=== PATIENT | female | born 1960 | race Caucasian/White ===

== ENCOUNTER → 2018-05-31 16:55 | Outpatient (CLI) | payer SELFPAY ==
--- NOTE | 2018-05-30 | IMM_PTH ---
PATIENT: CARLOS MURPHY LOC: [facility] U#:[id number] AGE/SX: 64/F ROOM: RE05/31/[address]: Dr. Nate Isaacs MD : 1960 BED: DIS: SPEC #: [id number] RECD: 06/03/18 10:48 STATUS: RIOS REApril #: [id number] ADE: 05/30/18 00:[address]: Nate Isaacs DEPT: IMMUNOHISTOCHEMISTRY RECD BY: Rama Connor Tissues: A - Stomach, NOS Procedures: H Pylori (initial) PHYSICIAN & INSTITUTION [place] [id number] SPECIMEN INFORMATION: Tissue Source: A ? Antral biopsy Clinical Info: Z80.0, R13.10 Specimen Number: [id number] CPT code: 82525 METHODOLOGY: Deparaffinized sections of prefer/formalin-fixed tissue or PAP/DQ stained slides are incubated with monoclonal/polyclonal antibodies/oligonucleotide probes. Localization is made via biotin free immunoperoxidase method. Appropriate controls are performed and reacted as expected. Results on target cell population are indicated in the following table: RESULTS: ANTIBODY / CLONE RESULT Block A H Pylori (polyclonal) negative These tests were developed and their performance characteristics determined by [facility]. They may not have been cleared or approved by the U.S. Food and Drug Administration. The FDA has determined that such clearance or approval is not necessary. INTERPRETATION: A. Antral biopsy: Negative for Helicobacter pylori organisms. AM:eduin 06/06/18
--- NOTE | 2018-05-30 15:40 | GASB_PTH ---
PATIENT: CARLOS MURPHY [facility][id number] AGE/SX: 64/F ROOM: RE05/31/[address]: Dr. Nate Isaacs MD : 1960 BED: DIS: SPEC #: [id number] RECD: 05/31/18 16:56 STATUS: RIOS JAY #: [id number] ADE: 05/30/18 15:[address]: Nate Isaacs DEPT: SURGICAL PATHOLOGY RECD BY: Cornel Welsh Tissues: A - Gastric mucous membrane B - Esophageal mucous membrane Procedures: Surgery Specimen Level IV HEADER OPERATION: EGD / colonoscopy PRE-OP DIAGNOSIS: Z80.0, R13.10 TISSUE SUBMITTED: A ? Antral biopsy H/H, B ? Distal esophageal biopsy MICROSCOPIC DIAGNOSIS A. Gastric antrum, biopsy: Mild chronic gastritis. B. Distal esophagus, biopsy: Focal changes of reflux. Gastroesophageal junction mucosa with chronic inflammation. AM:eduin 06/03/18 COMMENT A. The results of immunohistochemistry for Helicobacter pylori will be reported separately ([id number]). MICROSCOPIC DESCRIPTION Slides are reviewed. GROSS DESCRIPTION A - Received in fixative is one container labeled with the patient's name and designated antral biopsy. The specimen consists of two irregular fragments of light king soft tissue that in aggregate measure 0.6 x 0.3 x 0.1 cm. The specimen is totally submitted in one cassette. B - Received in fixative is one container labeled with the patient's name and designated distal esophageal biopsy. The specimen consists of one irregular fragment of light king soft tissue that measures 0.5 x 0.3 x 0.1 cm. The specimen is totally submitted in one cassette. / RY:rg 06/02/18 TC:3 CPT: 09567 x2
== END ==
PROVIDERS: Visit Provider Internal Medicine Gastroenterology
DX: K29.50 Unspecified chronic gastritis without bleeding (principal); R13.10 Dysphagia, unspecified; Z80.0 Family history of malignant neoplasm of digestive organs
CPT/HCPCS: 88305; 88342

== ENCOUNTER → 2020-09-13 09:40 | Outpatient (CLI) | payer OTHER, SELFPAY | PROVIDERS: PCP Internal Medicine; Referring Provider Nurse Practitioner Family; Visit Provider Nurse Practitioner Family | DX: Z20.828 Contact with and (suspected) exposure to other viral communicable diseases (principal); R05 Cough | CPT/HCPCS: 87635; C9803; U0003 ==

== ENCOUNTER 2022-12-30 20:33 | Emergency (ER) | payer OTHER, SELFPAY ==
[2022-12-30 20:34] VITALS: BP 181/99; PULSE 94; RESP 18; TEMP 35.5; O2SAT 99; BMI 29.4
--- NOTE | 2022-12-30 20:42 | EKG12_ITS ---
Test Reason : CP Blood Pressure : / mmHG Vent. Rate : 082 BPM Atrial Rate : 082 BPM P-R Int : 152 ms QRS Dur : 080 ms QT Int : 392 ms P-R-T Axes : 040 -04 033 degrees QTc Int : 457 ms Normal sinus rhythm Normal ECG Confirmed by ZBIGNIEW LINDSEY, REINA ([id number]), proposal editor SARA LONGORIA ([id number]) on 01/01/2023 8:58:37 AM Referred By: BALJIT Confirmed By:IDALIA COY MD
--- NOTE | 2022-12-30 20:55 | RAD_ITS ---
STUDY: X-RAY CHEST REASON FOR EXAM: Female, 62 years old. chest pain TECHNIQUE: AP portable COMPARISON: None. FINDINGS: Elevated right hemidiaphragm and mild right basilar atelectasis or infiltrate. There is no demonstrated pleural abnormality. Normal size heart. Normal mediastinum and edmundo. Normal visualized pulmonary arteries. Normal visualized aortic arch and descending thoracic aorta. Normal visualized thoracic spine. Normal visualized ribs, clavicles, and shoulders. Small hiatal hernia noted at the thoracoabdominal junction There is no demonstrated abnormality of the visualized soft tissue structures of the upper abdomen. RAD/Chest 1 View (Portable) IMPRESSION: Elevated right hemidiaphragm and mild basilar atelectasis.. Small hiatal hernia Electronically Signed: Andrew Santana MD at 21:37 EST ,
[2022-12-30 21:02] LABS: Absolute Lymphocyte Count 2.02 X10^3/uL (0.83-4.51); Absolute Neutrophil Count 5.1 X10^3/uL (2.0-7.7); Basophil# 0.09 X10^3/uL; Basophil% 1.1 % (0-1); Eosinophil# 0.27 X10^3/uL; Eosinophils% 3.4 % (0-5); Hematocrit 39.9 % (37-47); Hemoglobin 13.1 g/dL (12.0-15.0); Lymphocyte # 2.02 X10^3/ul (0.83-4.51); Lymphocyte % 25.4 % (19-41); Mean Corp Hgb Conc 32.8 g/dL (32-36); Mean Corpuscular Hgb 28.2 pg (27.0-32.0); Mean Corpuscular Volume 85.8 fL (81-99); Mean Platelet Vol. 11.5 fl (6.2-12.0); Monocyte# 0.47 X10^3/uL; Monocyte% 5.9 % (0-10); NRBC Flagged by Analyzer 0 % (0-5); Neutrophil # 5.09 X10^3/uL (2.7-7.7); Neutrophil % 63.9 % (47-70); Platelet Count 288 K/mm3 (150-450); RBC Distribution Width CV 12.9 % (11.6-14.6); RBC Distribution Width SD 39.6 fl (35.1-43.9); Red Blood Count 4.65 M/mm3 (4.2-5.4)
[2022-12-30 21:21] LABS: Anion Gap 7 (5-15); BUN 11 mg/dL (7-18); BUN/Creat Ratio 11.6 RATIO (10-20); Calcium,Total 8.8 mg/dL (8.5-10.1); Chloride 108 mmol/L (98-107); Creatinine, Serum 0.95 mg/dL (0.55-1.02); EST Glomerular Filtration Rate 63 mL/min (>60); Est Glom Filt Rate - Afr Amer 76 mL/min (>60); Estimated Creatinine Clearance 54.54 ml/min; Glucose 160 mg/dL (74-106); Potassium 3.8 mmol/L (3.5-5.1); Sodium Level 141 mmol/L (136-145); Troponin-I HS (w/2H Reflex) 3 pg/mL (3.0-54.0)
[2022-12-30 22:00] VITALS: RESP 18
--- NOTE | 2022-12-30 22:19 | US_ITS ---
EXAM: US ABDOMEN LIMITED, RIGHT UPPER QUADRANT CLINICAL INDICATION: ruq pain TECHNIQUE: Real-time ultrasound of the right upper quadrant with image documentation. This report was created using [employer] report generation technology. COMPARISON: None. FINDINGS: LIVER: Liver measures 18.9 cm. Of the liver is increased in echogenicity. No intrahepatic biliary ductal dilation. GALLBLADDER: There are multiple echogenic foci compatible with gallstones the largest measuring 2.8 cm. Gallbladder is mildly distended measuring 11.3 cm in length. The gallbladder wall measures 3 mm. There is trace pericholecystic fluid present. The patient had a positive sonographic Mason''s sign. COMMON BILE DUCT: Common bile duct measures 4 mm. The proximal common bile duct is within normal limits for the patient''s age. PANCREAS: Unremarkable as visualized. No focal abnormality is demonstrated in the pancreas. No pancreatic ductal dilatation. RIGHT KIDNEY: The right kidney measures 10.9 x 4.4 x 4.8 cm. The right renal cortex measures 8 mm. There is no hydronephrosis. No shadowing calculus. No focal lesion or perinephric collection is demonstrated. US/Gallbladder IMPRESSION: Cholelithiasis with borderline gallbladder wall thickening and trace pericholecystic fluid. The patient also had a positive sonographic Mason''s sign and these findings can be seen in acute cholecystitis. There is fatty infiltration of the liver. Electronically Signed: Da Fried MD at 23:02 EST ,
[2022-12-30 22:48] LABS: AST(SGOT) 26 U/L (15-37); Alanine Aminotransfer ALT/SGPT 41 U/L (13-56); Albumin, Serum 3.6 g/dL (3.2-5.0); Alkaline Phosphatase 81 U/L (45-117); Bilirubin, Direct 0.11 mg/dL (0.00-0.30); Globulin 3.6 g/dL (2.2-4.2); Lipase 109 U/L (73-393); Protein, Total 7.2 g/dL (6.4-8.2)
[2022-12-30] MEDS: Ondansetron 4 MG/2 ML Vial IV (22:54)
[2022-12-30] MEDS: Morphine 4 MG/ML Syringe IV (22:54)
[2022-12-30 22:59] LABS: Reflex Troponin-HS? (from REC) Y
[2022-12-30 23:00] VITALS: RESP 18
[2022-12-30 23:31] LABS: Troponin-I HS 6 pg/mL (3.0-54.0)
--- NOTE | 2022-12-30 23:34 | EX.ED.DYSGE1 ---
HPI History of Present Illness Chief Complaint: Chest Pain Narrative Narrative: Patient presenting with right upper quadrant abdominal pain/epigastric pain. Patient states start about 4 and half hours before she got here. Patient states that she had the symptoms the other day which lasted only for short while. She is feeling nauseous with this. No fever or chills. She does states she has a gallbladder. Initially she was concerned she was having chest pain. She denies any cardiac history. No DVT/PE risk factors. PFSH PFSH Home Medications hydrocodone-acetaminophen 5-325mg 5mg-325mg 1 tab PO Q6H PRN pain 3 days #12 TABLETS 12/31/22 [Rx Last Taken Unknown] ondansetron 4 mg disintegrating tablet 4 mg PO Q8H PRN PRN Nausea #14 tabs 12/31/22 [Rx Last Taken Unknown] Allergy/AdvReac Type Severity Reaction Status Date / Time No Known Allergies Allergy Verified 12/30/22 20:34 Social History Smoking Status: Never smoker ROS ROS ED Constitutional Constitutional ED: Denies chills or fever(s) Eyes Eyes: Denies change in vision ENT ENT ED: Denies rhinorrhea Cardiovascular Cardiovascular: Reports chest pain; Denies palpitations Respiratory/Chest Respiratory/Chest: Denies cough or dyspnea Gastrointestinal Gastrointestinal: Reports abdominal pain, nausea and vomiting Genitourinary Genitourinary ED: Denies dysuria or hematuria Musculoskeletal Musculoskeletal: Denies arthralgias Integumentary Denies abscess or Abrasions Neurologic Neurologic: Denies headache(s) or paresthesias Psychiatric Psychiatric: Denies anxiety or depression EXAM Physical Exam Const Vital Signs: 12/30/22 20:34 12/30/22 20:42 12/30/22 22:00 Temperature 96 F L Temperature Source Temporal Pulse Rate 94 Respiratory Rate 18 18 Respiratory Effort Respiratory Pattern Blood Pressure 181/99 H Blood Pressure Mean 126 Pulse Ox 99 Oxygen Delivery Method Room Air Room Air 12/30/22 23:00 12/30/22 22:00 Temperature Temperature Source Pulse Rate Respiratory Rate 18 Respiratory Effort Normal Non-Labored Respiratory Pattern Normal Blood Pressure Blood Pressure Mean Pulse Ox Oxygen Delivery Method Positive well nourished General Appearance ED: NAD; Negative for pallor HEENT Reports moist mucous membranes and dry mucous membranes Negative for trauma Mouth ED: Yes dry mucous membranes Mouth: dry mucous membranes Eyes PERRL and EOMs intact bilaterally General Eye ED: Negative for pale conjunctiva or scleral icterus Chest Wall inspection of chest normal Resp normal respiratory effort and clear to auscultation bilaterally Auscultation: Negative for rales, rhonchi or wheezes Cardio regular rate and regular rhythm GI normal to inspection, nondistended, normoactive bowel sounds Back/Spine no CVA tenderness Neuro oriented x3 and CN's II-XII intact bilaterally Sensorium / Orientation: alert Motor Exam: strength 5/5 throughout Psych mental status grossly normal Skin no rashes or lesions noted, no wounds and skin turgor normal General Skin Exam: Negative for jaundice or pallor MDM MDM MDM Narrative Medical decision making narrative: Patient initially triaged in the waiting room and complained. When I went back into the room to see her she was really complaining of right upper quadrant pain. Differential currently includes but is not limited to ACS, GERD, gastritis, gastric ulcer, acute cholecystitis, acute cholelithiasis, choledocholithiasis. she has associated nausea. She did have a protocol EKG performed which on my interpretation shows a sinus rhythm with a ventricular rate of 82 bpm without sign of ischemic changes arrhythmia. Chest x-ray was also obtained which did not show any acute cardiopulmonary process but does show hiatal hernia. CBC and CMP are unremarkable. High-sensitivity troponin returned at 3. Delta troponin is 6. Lipase is 109. Radiology interprets the right upper quadrant ultrasound is possible cholecystitis. Discussed with Dr. Perez who is on-call. He will see the patient. She was medicated with morphine and Zofran and does feel some improvement. Dr. Perez did evaluate the patient at bedside. Between the patient and him they decided they would do follow-up outpatient for not a good repair. Return symptoms were discussed at length. Impression: 1. acute cholelithiasis 2. Nausea/vomiting Lab Data Labs: Laboratory Results - last 24 hr 12/30/22 12/30/22 12/30/22 20:50 20:50 20:50 WBC 8.0 RBC 4.65 Hgb 13.1 Hct 39.9 MCV 85.8 MCH 28.2 MCHC 32.8 RDW Std Deviation 39.6 RDW Coeff of Sandra 12.9 Plt Count 288 MPV 11.5 Immature Gran % (Auto) 0.300 Neut % (Auto) 63.9 Lymph % (Auto) 25.4 [place] % (Auto) 5.9 Eos % (Auto) 3.4 Baso % (Auto) 1.1 H Absolute Neuts (auto) 5.1 Absolute Lymphs (auto) 2.02 Nucleated RBC % 0 Sodium 141 Potassium 3.8 Chloride 108 H Carbon Dioxide 26.0 Anion Gap 7 BUN 11 Creatinine 0.95 Estim Creat Clear Calc 54.54 Est GFR (MDRD) Af Amer 76 Est GFR (MDRD) Non-Af 63 BUN/Creatinine Ratio 11.6 Glucose 160 H Calcium 8.8 Total Bilirubin 0.30 Direct Bilirubin 0.11 AST 26 ALT 41 Alkaline Phosphatase 81 Troponin I High Sens 3 Total Protein 7.2 Albumin 3.6 Globulin 3.6 Lipase 109 12/30/22 23:00 WBC RBC Hgb Hct MCV MCH MCHC RDW Std Deviation RDW Coeff of Sandra Plt Count MPV Immature Gran % (Auto) Neut % (Auto) Lymph % (Auto) [place] % (Auto) Eos % (Auto) Baso % (Auto) Absolute Neuts (auto) Absolute Lymphs (auto) Nucleated RBC % Sodium Potassium Chloride Carbon Dioxide Anion Gap BUN Creatinine Estim Creat Clear Calc Est GFR (MDRD) Af Amer Est GFR (MDRD) Non-Af BUN/Creatinine Ratio Glucose Calcium Total Bilirubin Direct Bilirubin AST ALT Alkaline Phosphatase Troponin I High Sens 6 Total Protein Albumin Globulin Lipase Radiography Diagnostic Testing: Clinical Impression(s) from Imaging Studies Chest X-Ray 12/30/22 20:55 IMPRESSION: Elevated right hemidiaphragm and mild basilar atelectasis.. Small hiatal hernia Electronically Signed: Andrew Santana MD at 21:37 EST , Gallbladder Ultrasound 12/30/22 22:19 IMPRESSION: Cholelithiasis with borderline gallbladder wall thickening and trace pericholecystic fluid. The patient also had a positive sonographic Mason''s sign and these findings can be seen in acute cholecystitis. There is fatty infiltration of the liver. Electronically Signed: Da Fried MD at 23:02 EST , Discharge Plan Triage Chief Complaint: Chest Pain Other Complaint: Dizziness ED Provider: Sanjay Yee Dx/Rx/DC Orders Clinical Impression: Cholelithiasis Instructions: ED Gallstones with Biliary Colic Prescriptions: New hydrocodone-acetaminophen 5-325 mg tablet 1 tab PO Q6H PRN (Reason: pain) 3 Days Qty: 12 0RF ondansetron 4 mg tablet,disintegrating 4 mg PO Q8H PRN PRN (Reason: Nausea) Qty: 14 0RF Primary Care Provider: Allison Olmstead Referrals: Allison Olmstead MD [Primary Care Provider] - George Perez MD [Med Staff - Active Staff] - 2 Days Disposition Disposition: Home, Self Care
--- NOTE | 2022-12-31 00:24 | PCM.HP.STD ---
HPI - General General Date of Service: 12/30/22 Chief Complaint: Abdominal pain HPI Narrative CARLOS MURPHY, is a 62 F who presents to [facility] ER with complaints of severe chest versus upper abdominal pain with associated back pain, nausea, and sweating. Patient states she experienced onset of severe chest/upper abdominal discomfort on 12/27/2022 at approximately 1300 and initially thought this was a heart attack. She states she almost came in, but then tried lying down and taking a Tums and experienced spontaneous resolution of her discomfort. She notes this pain was associated with significant nausea and some sweating. She reports going to work the next day and experiencing some dizziness, but overall feeling better this week until she began feeling some abdominal discomfort after dinner today. She notes about 1730 today she began with similar?less intense?discomfort and some mild nausea. She reports this followed a meal of chicken from a local [employer] restaurant. Given that this discomfort was similar to her prior experience and that there is some family history of cardiovascular disease, she decided to present for evaluation. ER evaluation notable for normal CBC and CMP findings (including normal differential on the CBC). However, right upper quadrant ultrasound was performed and read by radiology as potentially consistent with acute cholecystitis given a borderline thickened gallbladder wall at 3 mm and trace pericholecystic fluid. Additionally radiology noted the presence of several gallstones measuring up to 2.8 cm in greatest dimension. Patient is generally healthy and takes only [id number] Tums in addition to a prescription of Prilosec for history of GERD. Only prior surgical history is related to sections for remote pregnancies. PFSH Home Medications hydrocodone-acetaminophen 5-325mg 5mg-325mg 1 tab PO Q6H PRN pain 3 days #12 TABLETS 12/31/22 [Rx Last Taken Unknown] ondansetron 4 mg disintegrating tablet 4 mg PO Q8H PRN PRN Nausea #14 tabs 12/31/22 [Rx Last Taken Unknown] Allergy/AdvReac Type Severity Reaction Status Date / Time No Known Allergies Allergy Verified 12/30/22 20:34 Social History Smoking Status: Never smoker ROS Constitutional Constitutional: Denies anorexia or fever(s) Gastrointestinal Gastrointestinal: Reports abdominal pain and nausea Vital Signs Vital Signs Vital Signs: 12/30/22 20:34 12/30/22 20:42 12/30/22 22:00 Temperature 96 F L Temperature Source Temporal Pulse Rate 94 Respiratory Rate 18 18 Respiratory Effort Respiratory Pattern Blood Pressure 181/99 H Blood Pressure Mean 126 Pulse Ox 99 Oxygen Delivery Method Room Air Room Air 12/30/22 23:00 12/30/22 22:00 Temperature Temperature Source Pulse Rate Respiratory Rate 18 Respiratory Effort Normal Non-Labored Respiratory Pattern Normal Blood Pressure Blood Pressure Mean Pulse Ox Oxygen Delivery Method Weight Weight: 177 lb Body Mass Index (BMI) 29.4 Physical Exam Const alert, oriented x3, no apparent distress and well nourished General Appearance: cooperative Resp normal respiratory effort GI GI Narrative: Overweight, no scars, nondistended. Soft and tender to palpation in the right upper quadrant. Negative Mason sign with repeat checks. Palpation: guarding RUQ (Voluntary) Results Lab / Micro Data Result Diagrams: 12/30/22 20:50 12/30/22 20:50 Labs: Laboratory Results - last 24 hr 12/30/22 20:50: WBC 8.0, RBC 4.65, Hgb 13.1, Hct 39.9, MCV 85.8, MCH 28.2, MCHC 32.8, RDW Std Deviation 39.6, RDW Coeff of Sandra 12.9, Plt Count 288, MPV 11.5, Immature Gran % (Auto) 0.300, Neut % (Auto) 63.9, Lymph % (Auto) 25.4, [place] % (Auto) 5.9, Eos % (Auto) 3.4, Baso % (Auto) 1.1 H, Absolute Neuts (auto) 5.1, Absolute Lymphs (auto) 2.02, Nucleated RBC % 0 12/30/22 20:50: Sodium 141, Potassium 3.8, Chloride 108 H, Carbon Dioxide 26.0, Anion Gap 7, BUN 11, Creatinine 0.95, Estim Creat Clear Calc 54.54, Est GFR (MDRD) Af Amer 76, Est GFR (MDRD) Non-Af 63, BUN/Creatinine Ratio 11.6, Glucose 160 H, Calcium 8.8, Troponin I High Sens 3 12/30/22 20:50: Total Bilirubin 0.30, Direct Bilirubin 0.11, AST 26, ALT 41, Alkaline Phosphatase 81, Total Protein 7.2, Albumin 3.6, Globulin 3.6, Lipase 109 12/30/22 23:00: Troponin I High Sens 6 Radiology Impression Chest X-Ray 12/30/22 20:55 IMPRESSION: Elevated right hemidiaphragm and mild basilar atelectasis.. Small hiatal hernia Electronically Signed: Andrew Santana MD at 21:37 EST , Gallbladder Ultrasound 12/30/22 22:19 IMPRESSION: Cholelithiasis with borderline gallbladder wall thickening and trace pericholecystic fluid. The patient also had a positive sonographic Mason''s sign and these findings can be seen in acute cholecystitis. There is fatty infiltration of the liver. Electronically Signed: Da Fried MD at 23:02 EST , Assessment & Plan Assessment/Plan (1) Cholelithiasis: PLAN: This is a 62-year-old, reasonably healthy, female who presents for acute onset abdominal (patient concerned for chest discomfort, but with negative troponins and clear physical exam) pain as well as associated nausea. Onset with both episodes the last week was postprandial. ER work-up is consistent with diagnosis of symptomatic cholelithiasis and biliary colic. While patient has tenderness in the right upper quadrant she does not have a positive Mason sign. Laboratories are reassuring with normal CBC and differential. Comprehensive metabolic panel is also within normal limits. Patient's right upper quadrant ultrasound was read as borderline thickened gallbladder wall and trace pericholecystic fluid. My independent review of the sonographic images, the gallbladder wall measures just at or under 3 mm which could be considered the upper limits of normal. She clearly also has large gallstones located in the infundibulum. Based on her exam and overall presentation, I recommend outpatient follow-up in our clinic with goal of scheduling surgery in the next week to mitigate her risk for future attack or development of cholecystitis. In the interim I have recommended avoiding foods that would be likely to provoke gallbladder activity and examples of such foods were given. Plan was reviewed with emergency medicine and they agreed to provide a as needed narcotic as well as antiemetic in the event of additional symptoms. Lastly patient was given precautions to return should she develop unrelenting pain and any associated fevers or chills. Both patient and her expressed comfort with this plan and agreed to call our office to schedule an outpatient appointment. Charges/Coding Visit Charges Inpatient E&M: 30855 Init Hosp L2
[2022-12-31 00:47] VITALS: RESP 16
== END 2022-12-31 00:48 | disposition home or self-care (01) ==
PROVIDERS: Emergency Provider Student in an Organized Health Care Education/Training Program; PCP Internal Medicine; Visit Provider Student in an Organized Health Care Education/Training Program
DX: K80.20 Calculus of gallbladder without cholecystitis without obstruction (principal); K44.9 Diaphragmatic hernia without obstruction or gangrene
CPT/HCPCS: 71045; 76705; 80048; 80076; 83690; 84484; 85025; 93005; 96374; 96375; 99283; A4216; J2405